=== PATIENT | female | born 1945 | race Hispanic/Latino ===

== ENCOUNTER 2022-05-27 05:24 | Observation (INO) | payer MEDICARE ==
[2022-05-24 10:53] LABS: BASOPHILS % 0.5 % (0.0-1.0); EOSINOPHILS # (AUTO) 0.2 (0.0-0.4); EOSINOPHILS % 3.3 % (0.0-6.0); HEMATOCRIT 41.6 % (34.2-44.1); HEMOGLOBIN 12.6 g/dL (12.0-16.0); LYMPHOCYTES # (AUTO) 2.1 (1.0-3.2); LYMPHOCYTES % 33.5 % (18.0-39.1); MEAN CORPUSCULAR HEMOGLOBIN 27.9 pg (28-32); MEAN CORPUSCULAR HGB CONC 30.3 g/dL (31-35); MONOCYTES # (AUTO) 0.5 (0.2-0.8); MONOCYTES % 7.3 % (4.4-11.3); NEUTROPHILS # (AUTO) 3.5 (2.1-6.9); NEUTROPHILS % 55.2 % (38.7-80.0); PLATELET COUNT 319 x10e3/uL (140-360); RED BLOOD COUNT 4.52 x10e6/uL (3.6-5.1); RED CELL DISTRIBUTION WIDTH 15.4 % (11.7-14.4)
[~2022-05-27] VITALS: Ht 162.6 cm; Wt 81.6 kg
[~2022-05-27 05:24] MED LIST: LOSARTAN POTASS25 MG; VITAMIN C1000 MG PO
[2022-05-27] MEDS ORDERED: GABAPENTIN 300 MG CAP ONE (06:25)
[2022-05-27] MEDS ORDERED: CELECOXIB 200 MG CAP ONE (06:25)
[2022-05-27] MEDS ORDERED: CEFAZOLIN SODIUM 2 GM ONE (06:25)
[2022-05-27] MEDS ORDERED: DEXAMETHASONE SOD PHOS 10 MG/1 ML VIAL ONE (06:25)
[2022-05-27] MEDS ORDERED: Vancomycin IV 1 GM VIAL ONE (06:32)
[2022-05-27] MEDS ORDERED: TRANEXAMIC ACID 20 ML ONE (06:32)
[2022-05-27] MEDS ORDERED: SODIUM CHLORIDE 0.9% 500ML 500 ML ONE (06:33)
[2022-05-27] MEDS ORDERED: ACETAMINOPHEN 1000 MG/100 ML 100 ML IV ONE (06:47)
[2022-05-27] MEDS ORDERED: Vancomycin IV 1,000 MG ONE (07:06)
[2022-05-27] MEDS ORDERED: ROPIVACAINE 246.25 MG, EPINEPHRINE HCL 1:1000 1ML 0.5 MG, CLONIDINE HCL 0.08 MG, KETORO... INJ ONE ×5 (08:00)
[2022-05-27] MEDS ORDERED: HYDROCODONE/APAP 5MG-325MG TAB PO PRN (08:45)
[2022-05-27] MEDS ORDERED: DOCUSATE SODIUM 100 MG CAP PO PRN (08:45)
[2022-05-27] MEDS ORDERED: SODIUM CHLORIDE 0.9% 1000ML 1,000 ML IV SCH (08:45)
[2022-05-27] MEDS ORDERED: DIPHENHYDRAMINE HCL INJ 50 MG/ML VIAL IV PRN (08:45)
[2022-05-27] MEDS ORDERED: ONDANSETRON HCL INJ 2MG/ML 2ML 2 MG/ML VIAL IV PRN (08:45)
[2022-05-27] MEDS ORDERED: HYDROCODONE/APAP 7.5MG-325MG 1 EA TAB PO PRN (08:45)
[2022-05-27 10:16] VITALS: BP 119/60
[2022-05-27 10:22] VITALS: BP 119/60
[2022-05-27 10:24] VITALS: BP 119/60
[2022-05-27] MEDS: CELECOXIB 100 MG CAP PO SCH ×2 (11:46→17:20)
[2022-05-27] MEDS: ASPIRIN 325 MG TAB PO SCH ×2 (11:46→17:20)
[2022-05-27 11:48] VITALS: BP 111/64
[2022-05-27] MEDS ORDERED: POVIDONE IODINE 0.05% 0.05 % ML PO ONE (12:43)
[2022-05-27] MEDS ORDERED: ONDANSETRON HCL INJ 2MG/ML 2ML 2 MG/ML VIAL ONE (12:43)
[2022-05-27] MEDS ORDERED: EPHEDRINE SULFATE INJ 50 MG/ML VIAL ONE (12:43)
[2022-05-27] MEDS ORDERED: DEXAMETHASONE SOD PHOS INJ 4 MG/ML SDV ONE (12:43)
[2022-05-27] MEDS ORDERED: PROPOFOL IV EMULSION 10 MG/ML 20 ML VIAL ONE (12:43)
[2022-05-27] MEDS ORDERED: LIDOCAINE HCL 2% LOCAL INJ 5 ML SDV VIAL INJ ONE (12:43)
[2022-05-27] MEDS ORDERED: ROPIVACAINE 0.5% 5 MG/ML 30 ML SDV ONE (13:00)
[2022-05-27] MEDS ORDERED: FENTANYL CITRATE/PF 100MCG/2 ML INJ ONE (13:04)
[2022-05-27] MEDS ORDERED: MIDAZOLAM HCL 2 MG/2 ML VIAL ONE (13:04)
[2022-05-27] MEDS ORDERED: ACETAMINOPHEN 1000 MG/100 ML IV PRN (14:00)
[2022-05-27 15:46] VITALS: BP 103/61
[2022-05-27] MEDS ORDERED: ASPIRIN81 MG PO (17:11)
== END 2022-05-27 18:52 | disposition home or self-care (01) ==
LOC: OR 05:24 → PACU V 08:41 → MED/SURG 09:58
PROVIDERS: ADMIT Specialist; ATTEND Specialist
DX: M17.11 Unilateral primary osteoarthritis, right knee (principal); Z01.818 Encounter for other preprocedural examination; Z20.822 Contact with and (suspected) exposure to COVID-19; I10 Essential (primary) hypertension; K21.9 Gastro-esophageal reflux disease without esophagitis; F41.9 Anxiety disorder, unspecified
CPT/HCPCS: 0223U; 27447; 36415; 71046; 73560; 85025; 86850; 86900; 86920; 93005; 94799; 97110; 97116; 97161; 97530; C1713 ×2; C1776 ×2; G0378; J0131; J0171; J0690; J1100 ×2; J1885; J2001; J2250; J2405; J2704; J2795; J3010; J3370; J7030; J7040

== ENCOUNTER 2022-08-23 11:00 | Outpatient (RCR) | payer MEDICARE ==
[~2022-08-23 11:00] MED LIST changes: +ASPIRIN81 MG PO
== END 2022-08-25 ==
LOC: PT 11:00
PROVIDERS: ATTEND Physician Assistant
DX: Z47.1 Aftercare following joint replacement surgery (principal); M17.11 Unilateral primary osteoarthritis, right knee

== ENCOUNTER 2022-09-09 14:00 | Outpatient (RCR) | payer MEDICARE | END 2022-09-25 | LOC: PT 14:00 | PROVIDERS: ATTEND Physician Assistant | DX: Z47.1 Aftercare following joint replacement surgery (principal); M17.11 Unilateral primary osteoarthritis, right knee ==